=== PATIENT | female | born 2000 | race Caucasian/White ===

== ENCOUNTER 2023-03-05 16:43 | Outpatient (CLI) | payer OTHER, SELFPAY | END 2023-03-05 16:44 | disposition home or self-care (01) | LOC: NFLDREF 16:44 | PROVIDERS: Visit Provider Physician Assistant | DX: Z34.93 Encounter for supervision of normal pregnancy, unspecified, third trimester (principal); Z3A.28 28 weeks gestation of pregnancy | CPT/HCPCS: 86592 ==

== ENCOUNTER 2023-05-02 15:30 | Outpatient (CLI) | payer OTHER, SELFPAY | END 2023-05-02 15:31 | disposition home or self-care (01) | LOC: NFLDREF 05-03 20:21 | PROVIDERS: Visit Provider Obstetrics & Gynecology | DX: Z34.93 Encounter for supervision of normal pregnancy, unspecified, third trimester (principal) | CPT/HCPCS: 87081; 87653 ==

== ENCOUNTER 2023-05-17 08:56 | Outpatient (CLI) | payer OTHER, SELFPAY ==
--- NOTE | 2023-05-17 09:15 | CRLHL7_ITS ---
For Patients: As a result of the Century Cures Act, medical imaging exams and procedure reports are released immediately into your electronic medical record. You may view this report before your referring provider. If you have questions, please contact your health care provider. INDICATION: Third trimester scan, evaluate growth. COMPARISON: none TECHNIQUE: Real time june scale imaging of the fetus was performed. FINDINGS: Sonographic imaging demonstrates a single living intrauterine gestation. Fetus demonstrates a regular cardiac rate of 131 beats per minute. Fetus has a vertex position. The placenta lies anteriorly. Amniotic fluid volume appears normal and there is a single deepest vertical pocket: 5.7 cm. The estimated weight is 3600gm which lies at the 75th %. BPD 5th percentile. HC 12th percentile. AC greater than 97th percentile. FL 15th percentile. The HC/AC ratio measures 0.89 range (0.91-1.05). IMPRESSION: Sonographic gestational age 37 weeks 4 days and sonographic due date 06/03/2023. Sonographic age 6 days behind the clinical age. Estimated weight 75th percentile. Abdominal circumference greater than 97th percentile. Dictated by Major Castro MD @ 05/17/2023 10:14:42 AM (Electronically Signed)
== END 2023-05-17 08:57 | disposition home or self-care (01) ==
LOC: US 08:57
PROVIDERS: Visit Provider Obstetrics & Gynecology
DX: O36.5930 Maternal care for other known or suspected poor fetal growth, third trimester, not applicable or unspecified (principal); Z3A.37 37 weeks gestation of pregnancy
CPT/HCPCS: 76816

== ENCOUNTER 2023-05-24 17:07 | Inpatient (IN) | payer OTHER, SELFPAY ==
[2023-05-24] VITALS (48 sets, daily range): BP systolic 132–170; BP diastolic 74–103; PULSE 52–73; RESP 18; TEMP 36.7–37.1; O2SAT 98–100; BMI 33.1
[2023-05-24 16:20] LABS: Hematocrit 35.7 % (33.0-51.0); Hemoglobin* 11.6 gm/dL (12.0-16.0); Mean Corpuscular HGB Conc 33 gm/dL (32-36); Mean Corpuscular Hemoglobin 27 pg (26-34); Mean Corpuscular Volume 83 fL (80-100); Platelet Count* 208 K/uL (140-440); Red Blood Count 4.32 m/uL (4.00-5.20)
[2023-05-24 16:25] LABS: Slide Review Reflex No
[2023-05-24 16:26] LABS: Total Protein Urine 39 mg/dL
[2023-05-24 16:30] LABS: Creatinine Urine 35.2 mg/dL
[2023-05-24 16:32] LABS: Alanine Aminotransferase* 21 U/L (4-35); Aspartate Amino Transferase* 26 U/L (12-35); Blood Urea Nitrogen* 7 mg/dL (5-24); Creatinine* 0.7 mg/dL (0.5-1.5); Estimated Glomerular Filt Rate 125 ml/min
--- NOTE | 2023-05-24 16:40 | PM.OBHPAP1 ---
OB - H&P; HPI Antepartum History of Present Illness Time Seen by Provider: 16:40 Date Seen: 05/24/23 Chief complaint: Maternity Narrative: Celine Reese is a 22 year old female Specific Issues/Plans Spouse: Cody. Baby: Boy! Philip 1. Transfer OB at 28 2. Choroid plexus cysts and echogenic intracardiac focus noted on anatomy ultrasound. MFM consult and level 2 01/23/2023: No evidence of the echogenic intracardiac focus or choroid plexus cyst. Cell free DNA Nater/Panorama: Low risk 3. History of depression. Currently doing well. Last treated approximately 5 years ago 4. GBS positive: -Allergy to Amoxicillin with anaphylaxis -Susceptibilities completed, plan to utilize Vancomycin antibiotic for prophylaxis labs 11/19/22; O positive, negative antibody screen, hemoglobin 12.4, platelets 228, rubella immune, RPR nonreactive, hepatitis B surface antigen nonreactive, HIV negative, gonorrhea and Chlamydia negative. Urine culture negative Cell free DNA 01/08/2023: Low risk, boy! Imagin. 11/19/2022: Single live intrauterine with heart rate of 159. JOANNA 05/28/2023. Using ultrasound JOANNA due to 8 day discrepancy and uncertain LMP 2. 01/08/2023: Normal anatomy with exception of choroid plexus cyst and echogenic intracardiac focus. Anterior placenta, no previa. EFW 47.3% Covid: Flu: Tdap: 03/19/2023 Comments: This is a 22-year-old white female 1 para 0 who presents at 39 weeks gestation with a due date of May 28 based upon last menstrual. A 12 week ultrasound. Patient was seen in the office today and found to have elevated blood pressures. She is now sent for induction of labor patient denies any symptoms of preeclampsia. No spots before eyes or blurred vision. No headaches or abdominal pain. Patient states the baby is moving. Patient's antepartum history has been unremarkable. She is GBS positive. She passed all her other antepartum testing. Past medical history none. Past surgical history: Kidney surgery and tonsils. Medicines: None. Allergies: Penicillin codeine Ditropan and softball cause anaphylaxis. Social history: No smoke or drink or drugs. Tiny history: No history of STD. Review of systems is negative. Meds Home Medications and Allergies Home Medications Medication Instructions Recorded Confirmed Type biotin 5 mg capsule 5 mg PO QDAY 03/05/23 05/24/23 History calcium carbonate 600 mg-vitamin cap PO DAILY Supplement 03/05/23 05/24/23 History D3 12.5 mcg (500 unit) capsule (Calcium 600 with Vitamin D3) ferrous sulfate 134 mg (27 mg 134 mg PO QDAY 03/05/23 05/24/23 History iron) tablet folic acid 20 mg capsule 20 mg PO QDAY 03/05/23 05/24/23 History prenat.vits,sindy,zrf-pcqd-mauck 1 tab PO QDAY 03/05/23 05/24/23 History Allergies Allergy/AdvReac Type Severity Reaction Status Date / Time amoxicillin Allergy Severe Anaphylaxis Verified 05/24/23 15:34 oxybutynin [From Ditropan] Allergy Severe Anaphylaxis Verified 05/24/23 15:34 Penicillins Allergy Severe Anaphylaxis Verified 05/24/23 15:34 Sulfa (Sulfonamide Allergy Severe Anaphylaxis Verified 05/24/23 15:34 Antibiotics) sulfamethoxazole Allergy Severe Anaphylaxis Verified 05/24/23 15:34 [From Bactrim] trimethoprim [From Bactrim] Allergy Severe Anaphylaxis Verified 05/24/23 15:34 codeine Allergy Mild Verified 05/24/23 15:34 OB - H&P: Exam Physical Exam: Vital signs: Pulse BP Pulse Ox 56 L 139/95 H 100 05/24/23 16:25 05/24/23 16:25 05/24/23 16:37 Narrative: HEENT: Unremarkable. Lungs: Clear Heart: Positive S1-S2 no S3 or S4. Abdomen: Fundal height of 37. Soft and nontender. Sterile vaginal exam: Fingertip, 50%,-2 station heart tones: 120. Positive accelerations. No decelerations. Good variability. Irregular uterine contractions. Category 1. OB - Results Labs Labs: Short CBC 05/24/23 Range/Units 16:07 WBC 8.50 (4.50-11.00) K/uL Hgb 11.6 L (12.0-16.0) gm/dL Hct 35.7 (33.0-51.0) % Plt Count 208 (140-440) K/uL OB - A/P Antepartum Assessment and Plan (1) Preeclampsia: Status: Acute Plan Assessment: Preeclampsia without severe features. Patient will get induction of labor with Pitocin and a cervical balloon. Will hold off with magnesium at this point time. Patient have an epidural p.r.n.. GBS positive. Anaphylaxis to penicillins. Patient be treated with vancomycin.
[2023-05-24] MEDS: LACTATED RINGERS 1000 ML 1,000 ML 125 ML IV (17:50)
[2023-05-24] MEDS: OXYTOCIN 30 unit/500 ML in NS 30 UNIT/500 ML BAG IVPB (18:00)
[2023-05-25] VITALS (30 sets, daily range): BP systolic 115–159; BP diastolic 69–107; PULSE 51–83; RESP 18; TEMP 36.7–37.1; O2SAT 98–100
[2023-05-25] MEDS: LACTATED RINGERS 1000 ML 1,000 ML 125 ML IV (02:06)
[2023-05-25] MEDS: miSOPROStoL 25 MCG/0.25 TABLET VAGINAL ×4 (09:12→21:16)
--- NOTE | 2023-05-25 12:53 | PM.OBPNL ---
Subjective Time Seen by Provider: 12:53 Date Seen: 05/25/23 Narrative: Cook balloon out. Patient now getting Cytotec 25 mcg every 4 hours. Patient states that her discomfort is minimal. Positive movement. Objective Exam: HEENT: Unremarkable. Lungs: Clear Heart: Positive S1-S2 no S3 or S4. Abdomen: Soft nontender. Sterile vaginal exam by the nurse. 1 cm. 50%. Minus three. heart tones. heart rate of 140. Positive accelerations. No decelerations. Good variability. Category 1. Irregular uterine contractions. Vital Signs: Last Vital Signs Temp 98.8 F 05/25/23 11:44 Pulse 65 05/25/23 12:46 Resp 18 05/25/23 11:44 BP 115/71 05/25/23 12:46 Pulse Ox 98 05/25/23 08:00 Assessment Assessment: induction ongoing Status: Category l Plan Plan: Will continue Cytotec for 24 hours unless cervix becomes favorable and I am able to rupture membranes. No symptoms of severe preeclampsia. Blood pressures are relatively in the normal range. well-being is good at this point time.
[2023-05-25 23:02] LABS: Basophils Absolute Auto 0.04 K/uL (0.00-0.30); Basophils Percent Auto 0.4 % (0.0-3.0); Eosinophils Absolute Auto 0.29 K/uL (0.00-0.50); Eosinophils Percent Auto 2.8 % (0.0-7.0); Hematocrit 33.7 % (33.0-51.0); Lymphocytes Absolute Auto 2.28 K/uL (0.90-2.90); Lymphocytes Percent Auto 21.9 % (20-44); Mean Corpuscular HGB Conc 33 gm/dL (32-36); Mean Corpuscular Hemoglobin 27 pg (26-34); Mean Corpuscular Volume 82 fL (80-100); Monocytes Percent Auto 7.4 % (0.0-11.0); Neutrophils Absolute Auto 6.95 K/uL (1.7-7.0); Neutrophils Percent Auto 66.5 % (42.0-72.0); Platelet Count* 187 K/uL (140-440); RDW Coefficient of Variation % 13.1 % (11.5-15.5); White Blood Count* 10.43 K/uL (4.50-11.00)
[2023-05-25 23:03] LABS: Slide Review Reflex No
[2023-05-25 23:15] LABS: Albumin* 3.2 g/dL (3.3-5.0); Chloride* 102 mmol/L (96-114); Potassium* 3.9 mmol/L (3.6-5.1); Sodium* 133 mmol/L (135-149)
[2023-05-25 23:17] LABS: Creatinine* 0.9 mg/dL (0.5-1.5); Est. Creatinine Clearance* 83.95; Estimated Glomerular Filt Rate 92 ml/min
[2023-05-25 23:18] LABS: Alanine Aminotransferase* 18 U/L (4-35); Alkaline Phosphatase* 136 U/L (40-150); Aspartate Amino Transferase* 26 U/L (12-35); Bilirubin Total* 0.3 mg/dL (0.1-1.5); Blood Urea Nitrogen* 12 mg/dL (5-24); Carbon Dioxide* 26 mmol/L (20-32); Total Protein* 6.3 g/dL (6.0-8.3)
[2023-05-25 23:19] LABS: Glucose* 90 mg/dL (60-115)
[2023-05-26] VITALS (108 sets, daily range): BP systolic 106–194; BP diastolic 61–97; PULSE 49–105; RESP 16–18; TEMP 36.8–39.4; O2SAT 92–100
[2023-05-26] MEDS: miSOPROStoL 25 MCG/0.25 TABLET VAGINAL (01:13)
[2023-05-26] MEDS: LACTATED RINGERS 1000 ML 1,000 ML 1200 ML IV ×2 (02:12→02:57)
[2023-05-26] MEDS: ROPIVACAINE 0.2% 100 ml 100 ML 12 MG EPIDURAL (02:47)
[2023-05-26] MEDS: LIDOCAINE 2% (PF) 5 ML VIAL EPIDURAL (02:47)
--- NOTE | 2023-05-26 02:56 | P.ANBPRC_ITS ---
[facility] Medical History (Updated 05/24/23 @ 16:43 by Yovanny De Leon MD) Depression ?F32.A - Depression, unspecified (ICD-10) History of urinary reflux ?Z87.448 - Personal history of other diseases of urinary system (ICD-10) Surgical History (Updated 05/10/23 @ 14:24 by Cherise Manjarrez MD) H/O wisdom tooth extraction ?K08.409 - Partial loss of teeth, unspecified cause, unspecified class (ICD- 10) History of tonsillectomy and adenoidectomy ?Z90.89 - Acquired absence of other organs (ICD-10) Family History (Updated 03/05/23 @ 12:43 by Ariella Navarrete PA-C) Father Diabetes Maternal Grandmother Diabetes Colon cancer Breast cancer Cervical cancer Social History (Updated 05/10/23 @ 14:25 by Cherise Manjarrez MD) Narrative: Lives in [place] with FOB and dog. 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 Significant other. What is your current living situation?: I presently have a place to live Problems where you live: no known problems In the past 12 months, utilities in danger of being shut off: no In the past 12 mos, have been you worried that your food would run out before you had money to buy more?: never true In the past 12 mos, the food you bought just didn't last and you didn't have money to buy more?: never true Smoking Status: Never smoker How often does anyone, including family, friends and others, physically hurt you : never How often does anyone, including family, friends and others, insult or talk down to you: never How often does anyone, including family, friends and others, threaten you with harm: never How often does anyone, including family, friends and others, scream or curse at you: never Little interest or pleasure in doing things: not at all Feeling down, depressed, or hopeless: not at all Meds Home Medications and Allergies Home Medications Medication Instructions Recorded Confirmed Type biotin 5 mg capsule 5 mg PO QDAY 03/05/23 05/24/23 History calcium carbonate 600 mg-vitamin 1 cap PO DAILY Supplement 03/05/23 05/24/23 History D3 12.5 mcg (500 unit) capsule (Calcium 600 with Vitamin D3) ferrous sulfate 134 mg (27 mg 134 mg PO QDAY 03/05/23 05/24/23 History iron) tablet folic acid 20 mg capsule 20 mg PO QDAY 03/05/23 05/24/23 History prenat.vits,sindy,nai-khds-ahulx 1 tab PO QDAY 03/05/23 05/24/23 History Allergies Allergy/AdvReac Type Severity Reaction Status Date / Time amoxicillin Allergy Severe Anaphylaxis Verified 05/24/23 15:34 oxybutynin [From Ditropan] Allergy Severe Anaphylaxis Verified 05/24/23 15:34 Penicillins Allergy Severe Anaphylaxis Verified 05/24/23 15:34 Sulfa (Sulfonamide Allergy Severe Anaphylaxis Verified 05/24/23 15:34 Antibiotics) sulfamethoxazole Allergy Severe Anaphylaxis Verified 05/24/23 15:34 [From Bactrim] trimethoprim [From Bactrim] Allergy Severe Anaphylaxis Verified 05/24/23 15:34 codeine Allergy Mild Verified 05/24/23 15:34 Results Labs Labs: Laboratory Results - last 24 hr 05/25/23 22:55 WBC 10.43 RBC 4.10 Hgb 11.0 L Hct 33.7 MCV 82 MCH 27 MCHC 33 RDW Coeff of Berto 13.1 Plt Count 187 Neut % (Auto) 66.5 Lymph % (Auto) 21.9 [place] % (Auto) 7.4 Eos % (Auto) 2.8 Baso % (Auto) 0.4 Neut # (Auto) 6.95 Lymph # (Auto) 2.28 [place] # (Auto) 0.80 Eos # (Auto) 0.29 Baso # (Auto) 0.04 Abs Immat Gran (auto) 0.10 Imm/Tot Granulo (auto) 1.0 Sodium 133 L Potassium 3.9 Chloride 102 Carbon Dioxide 26 BUN 12 Creatinine 0.9 Estimated Creat Clear 83.95 Estimated GFR 92 Glucose 90 Total Bilirubin 0.3 AST 26 ALT 18 Alkaline Phosphatase 136 Total Protein 6.3 Albumin 3.2 L Vital Signs Vital Signs: Last Vital Signs Temp 98.6 F 05/26/23 02:53 Pulse 56 L 05/26/23 02:53 Resp 18 05/25/23 15:53 BP 130/78 05/26/23 02:53 Pulse Ox 99 05/26/23 02:41 Weight: 87.861 kg Height: 162.56 cm Anesthesia Procedures Epidural Insertion Patient Location: OB Start Time: 02:00 Stop Time: 03:00 Start Date: 05/26/23 Stop Date: 05/26/23 Reason for Block: procedure for pain Patient Position: sitting Performed By: Laura Manzanares Preanesthetic Checklist: IV checked, risks and benefits discussed, monitors and equipment checked, pre-op evaluation, timeout performed and anesthesia consent Prep: chlorhexidine gluconate Monitoring: blood pressure monitoring, continuous pulse oximetry and heart rate Approach: midline Vertebral Space: lumbar (1-5) Epidural Technique: YUN saline Needle Type: Tuohy needle Injection Technique: continuous catheter (continuous catheter) Needle gauge: 17 Needle Length (cm): 10 cm Needle Insertion Depth (cm): 6 Catheter Gauge: 19 Catheter Type: multi-orifice Catheter at skin depth (cm): 15 Test Dose Result: negative and lidocaine 1.5% with epinephrine 1 to 200,000
[2023-05-26] MEDS: diphenhydrAMINE 50 MG/ML inj 25 MG IVP (04:47)
[2023-05-26] MEDS: OXYTOCIN 30 unit/500 ML in NS 30 UNIT/500 ML BAG IVPB (05:20)
--- NOTE | 2023-05-26 08:56 | W.PM.OBVAGDE ---
OB Procedure Vag Delivery Mother Details Mother Details: The patient is a 22 year-old, 1, Para 0, admitted on 05/24/23 at 39 weeks gestation with a diagnosis of preeclampsia. She was seen in the office on the day of admission and found to have an elevated blood pressure. PC ratio was also elevated. Patient had no other signs or symptoms of preeclampsia with severe features. : 1 Weeks Gestation: 39 Additional Details Amniotic Membrane Status: SROM Amniotic Membrane Fluid Description: Clear Analgesia/Anesthesia Type: Epidural Waterbirth: No Pitcoin: Yes Intrapartal Events: Labor Induction Induction Method: Intracervical balloon catheter, per misoprostol protocol and per pitocin protocol Heart: heart tones during second stage were [] Delivery Details Route of delivery: Gender: Male Viability: Alive; Heart Rate Present Position at Delivery: OA Delivery Details: Patient had spontaneous rupture of membranes at approximately 2:00 a.m.. I was called at 6:30 a.m. telling me she was complete and +1 station. I arrived approximately 645 and have the patient start pushing. heart tones at this point time were reassuring. Blood pressure normal. Patient pushed for approximately 90 minutes. As the patient crowned a turtle sign was immediately recognized and shoulder dystocia protocol was called. The McRobert maneuver was performed and this failed to deliver the fetus. No traction at any time was put on the head. Suprapubic pressure was then ordered and this also failed. I then delivered the posterior arm by putting my finger in the right axilla, which was posterior and able to deliver the arm. They rest of the body weekly follow-up. Time from delivery of head to body was 70 seconds. The cord was then doubly clamped and cut and the infant was handed to the nurse practitioner. Pitocin was ordered Cord gases were obtained. The vaginal vault cervix in [place] also checked. There was a spontaneous small second-degree laceration of the vagina at the posterior fourchette. This was repaired with a [id number] stitch of 2-0 Vicryl. Apgars were 5 and 8. Examination of the baby suggested crepitance over the posterior arm which was the right arm. This suggested a clavicle fracture. Patient and father were made aware. X-ray has been ordered. 1 Minute Interval Total Score: 5 5 Minute Interval Total Score: 8 Additional Details Shoulder Dystocia: Yes Placental Delivery Description: Spontaneous Delivery repair: Vicryl Procedure Done: Global Blood Loss: 500 Laceration: Vaginal - 2nd Degree Episiotomy Description: None Blood Loss Measurement Type: EBL Bakri Used: No Sponge/Need Count Correct: Yes Cord Vessel Description: 3 Vessels Event Summary Status: Mother and infant were stable after delivery.
[2023-05-26] MEDS: IBUPROFEN 600 MG TABLET PO (09:23)
[2023-05-26] MEDS: LACTATED RINGERS 1000 ML 1,000 ML 75 ML IV (10:00)
[2023-05-26] MEDS: LABETALOL HCL 5 MG/ML inj IVP ×2 (10:00→10:12)
[2023-05-26] MEDS: MAGNESIUM IV 4 GM/100 ML PIGGYBACK IVPB (10:06)
--- NOTE | 2023-05-26 10:34 | P.OBPN_ITS ---
OB - PN:Subj Subjective Time Seen by Provider: 10:34 Date Seen: 05/26/23 Interval history: Called to see the patient at approximately 10:00 a.m. with complaints of visual changes and spots before eyes. Blood pressure at that time was taken was found to be 194/83. 4 gram of magnesium bolus was then given followed by 2 grams/hour. Patient also received 20 mg of labetalol IV at that time. After 15 minutes blood pressure came down to 177/86 and 40 mg of labetalol was given. After 15 minutes blood pressure is now 136/72 OB - PN: Obj Exam Physical Exam: Vital signs: Temp Pulse Resp BP Pulse Ox 98.9 F 97 18 138/76 98 05/26/23 06:42 05/26/23 10:31 05/25/23 15:53 05/26/23 10:31 05/26/23 10:30 Narrative: Lungs are clear Heart: Positive S1-S2 no S3 or S4. Abdomen: Soft and nontender. Lower extremities: 3+ deep tendon reflexes. Negative clonus. OB - PN: Obj Data Labs Labs: Laboratory Results - last 24 hr 05/25/23 22:55 WBC 10.43 RBC 4.10 Hgb 11.0 L Hct 33.7 MCV 82 MCH 27 MCHC 33 RDW Coeff of Berto 13.1 Plt Count 187 Neut % (Auto) 66.5 Lymph % (Auto) 21.9 [place] % (Auto) 7.4 Eos % (Auto) 2.8 Baso % (Auto) 0.4 Neut # (Auto) 6.95 Lymph # (Auto) 2.28 [place] # (Auto) 0.80 Eos # (Auto) 0.29 Baso # (Auto) 0.04 Abs Immat Gran (auto) 0.10 Imm/Tot Granulo (auto) 1.0 Sodium 133 L Potassium 3.9 Chloride 102 Carbon Dioxide 26 BUN 12 Creatinine 0.9 Estimated Creat Clear 83.95 Estimated GFR 92 Glucose 90 Total Bilirubin 0.3 AST 26 ALT 18 Alkaline Phosphatase 136 Total Protein 6.3 Albumin 3.2 L OB - PN: A/P Delivery Assessment and Plan (1) Preeclampsia: Status: Acute Plan Assessment: Symptoms of severe preeclampsia. Cbc and CMP ordered. Patient will receive 4 g bolus of magnesium followed by 2 grams/hour. Will continue to monitor blood pressures per protocol. Strict I's and O's. Fluid restrict to 125 mL. Mos[place] ordered.
[2023-05-26 10:44] LABS: Hemoglobin* 11.4 gm/dL (12.0-16.0); Mean Corpuscular HGB Conc 35 gm/dL (32-36); Mean Corpuscular Hemoglobin 28 pg (26-34); Mean Corpuscular Volume 82 fL (80-100); Platelet Count* 192 K/uL (140-440); Red Blood Count 4.05 m/uL (4.00-5.20); White Blood Count* 14.24 K/uL (4.50-11.00)
[2023-05-26 10:46] LABS: Slide Review Reflex No
[2023-05-26 11:02] LABS: Alanine Aminotransferase* 20 U/L (4-35); Aspartate Amino Transferase* 34 U/L (12-35); Blood Urea Nitrogen* 14 mg/dL (5-24); Est. Creatinine Clearance* 75.55; Estimated Glomerular Filt Rate 81 ml/min
--- NOTE | 2023-05-26 14:33 | P.OBPN_ITS ---
OB - PN:Subj Subjective Time Seen by Provider: 14:33 Date Seen: 05/26/23 Interval history: Called to see the patient at approximately 10:00 a.m. with complaints of visual changes and spots before eyes. Blood pressure at that time was taken was found to be 194/83. 4 gram of magnesium bolus was then given followed by 2 grams/hour. Patient also received 20 mg of labetalol IV at that time. After 15 minutes blood pressure came down to 177/86 and 40 mg of labetalol was given. After 15 minutes blood pressure is now 136/72 OB - PN: Obj Exam Physical Exam: Vital signs: Temp Pulse Resp BP Pulse Ox 98.9 F 78 18 149/80 H 96 05/26/23 06:42 05/26/23 12:01 05/25/23 15:53 05/26/23 12:01 05/26/23 12:35 OB - PN: Obj Data Labs Labs: Laboratory Results - last 24 hr 05/25/23 05/26/23 22:55 10:35 WBC 10.43 14.24 H RBC 4.10 4.05 Hgb 11.0 L 11.4 L Hct 33.7 33.0 MCV 82 82 MCH 27 28 MCHC 33 35 RDW Coeff of Berto 13.1 Plt Count 187 192 Neut % (Auto) 66.5 Lymph % (Auto) 21.9 [place] % (Auto) 7.4 Eos % (Auto) 2.8 Baso % (Auto) 0.4 Neut # (Auto) 6.95 Lymph # (Auto) 2.28 [place] # (Auto) 0.80 Eos # (Auto) 0.29 Baso # (Auto) 0.04 Abs Immat Gran (auto) 0.10 Imm/Tot Granulo (auto) 1.0 Sodium 133 L Potassium 3.9 Chloride 102 Carbon Dioxide 26 BUN 12 14 Creatinine 0.9 1.0 Estimated Creat Clear 83.95 75.55 Estimated GFR 92 81 Glucose 90 Total Bilirubin 0.3 AST 26 34 ALT 18 20 Alkaline Phosphatase 136 Total Protein 6.3 Albumin 3.2 L OB - PN: A/P Delivery Assessment and Plan (1) Preeclampsia: Status: Acute
[2023-05-26 16:45] LABS: Hematocrit 33.4 % (33.0-51.0); Hemoglobin* 11.2 gm/dL (12.0-16.0); Mean Corpuscular HGB Conc 34 gm/dL (32-36); Mean Corpuscular Hemoglobin 27 pg (26-34); Mean Corpuscular Volume 82 fL (80-100); Platelet Count* 194 K/uL (140-440); Red Blood Count 4.09 m/uL (4.00-5.20); White Blood Count* 15.52 K/uL (4.50-11.00)
[2023-05-26 17:00] LABS: Est. Creatinine Clearance* 75.55; Estimated Glomerular Filt Rate 81 ml/min
[2023-05-26 17:01] LABS: Alanine Aminotransferase* 21 U/L (4-35); Aspartate Amino Transferase* 47 U/L (12-35); Blood Urea Nitrogen* 13 mg/dL (5-24)
[2023-05-26 17:08] LABS: Magnesium* 5.7 mg/dL (1.5-2.6)
[2023-05-26 17:29] LABS: Slide Review Reflex No
[2023-05-26] MEDS: miSOPROStoL 800 MCG/4 TABLET 400 MCG SUBLINGUAL (20:17)
[2023-05-26] MEDS: LABETALOL HCL 100 MG TABLET PO (21:04)
[2023-05-26] MEDS: ACETAMINOPHEN 500 MG TABLET 1000 MG PO (21:04)
[2023-05-26 22:33] LABS: Hematocrit 30.2 % (33.0-51.0); Mean Corpuscular HGB Conc 33 gm/dL (32-36); Mean Corpuscular Hemoglobin 27 pg (26-34); Mean Corpuscular Volume 82 fL (80-100); Platelet Count* 177 K/uL (140-440); Red Blood Count 3.67 m/uL (4.00-5.20); White Blood Count* 12.85 K/uL (4.50-11.00)
[2023-05-26 22:34] LABS: Slide Review Reflex No
[2023-05-26 22:36] LABS: Alanine Aminotransferase* 19 U/L (4-35); Aspartate Amino Transferase* 40 U/L (12-35); Est. Creatinine Clearance* 75.55; Estimated Glomerular Filt Rate 81 ml/min
[2023-05-26 22:37] LABS: Blood Urea Nitrogen* 14 mg/dL (5-24)
[2023-05-26 22:48] LABS: Magnesium* 6.5 mg/dL (1.5-2.6)
[2023-05-27] VITALS (11 sets, daily range): BP systolic 120–157; BP diastolic 74–93; PULSE 57–71; RESP 16; TEMP 36.3–36.8; O2SAT 95–97
[2023-05-27] MEDS: LACTATED RINGERS 1000 ML 1,000 ML 75 ML IV (00:01)
[2023-05-27] MEDS: IBUPROFEN 600 MG TABLET PO ×3 (04:15→23:47)
[2023-05-27 05:04] LABS: Hematocrit 31.3 % (33.0-51.0); Hemoglobin* 10.3 gm/dL (12.0-16.0); Mean Corpuscular HGB Conc 33 gm/dL (32-36); Mean Corpuscular Hemoglobin 27 pg (26-34); Mean Corpuscular Volume 82 fL (80-100); Platelet Count* 178 K/uL (140-440); White Blood Count* 12.19 K/uL (4.50-11.00)
[2023-05-27 05:10] LABS: Slide Review Reflex No
[2023-05-27 05:12] LABS: Alanine Aminotransferase* 20 U/L (4-35); Aspartate Amino Transferase* 39 U/L (12-35); Blood Urea Nitrogen* 12 mg/dL (5-24); Est. Creatinine Clearance* 75.55; Estimated Glomerular Filt Rate 81 ml/min
[2023-05-27 05:21] LABS: Magnesium* 7.4 mg/dL (1.5-2.6)
[2023-05-27] MEDS: DOCUSATE SODIUM 100 MG CAPSULE PO (10:20)
[2023-05-27] MEDS: LABETALOL HCL 100 MG TABLET PO ×2 (10:21→21:32)
[2023-05-27 10:33] LABS: Hematocrit 32.1 % (33.0-51.0); Hemoglobin* 10.5 gm/dL (12.0-16.0); Mean Corpuscular HGB Conc 33 gm/dL (32-36); Mean Corpuscular Hemoglobin 27 pg (26-34); Mean Corpuscular Volume 82 fL (80-100); Platelet Count* 182 K/uL (140-440); Red Blood Count 3.91 m/uL (4.00-5.20); White Blood Count* 12.59 K/uL (4.50-11.00)
[2023-05-27 10:34] LABS: Slide Review Reflex No
[2023-05-27 10:55] LABS: Alanine Aminotransferase* 21 U/L (4-35); Aspartate Amino Transferase* 45 U/L (12-35); Blood Urea Nitrogen* 12 mg/dL (5-24); Creatinine* 0.9 mg/dL (0.5-1.5); Est. Creatinine Clearance* 83.95; Estimated Glomerular Filt Rate 92 ml/min
[2023-05-27 11:11] LABS: Magnesium* 7.5 mg/dL (1.5-2.6)
--- NOTE | 2023-05-27 14:13 | P.OBPN_ITS ---
OB - PN:Subj Subjective Time Seen by Provider: 08:45 Date Seen: 05/27/23 Interval history: The patient was teary eyed when I came into the room, as she had just been informed by the integration project manager that her would need to be transferred to a tertiary medical center. She had no other concerns. She denied headaches, visual changes, abdominal pain or cramping, or heavy vaginal bleeding. She is working on . [place] infant status: and transferred (Plan to be transferred today) OB - PN: Obj Exam Physical Exam: Vital signs: Temp Pulse Resp BP Pulse Ox O2 Del Method 97.6 F 71 16 130/82 95 Room Air 05/27/23 11:00 05/27/23 11:00 05/27/23 11:00 05/27/23 11:00 05/27/23 11:00 05/27/23 11:00 Constitutional: Constitutional: no acute distress (Tearful) Routine Respiratory Exam: Respiratory: Present CTA bilaterally Routine Cardiovascular Exam: Cardiovascular: Present RRR Detailed Abdominal Exam: Comments: Soft, nontender. Fundus firm at the umbilicus. Routine Extremities Exam: Extremities: Absent calf tenderness Urinary Catheter Management: Urethral: Cath placed during this visit: no OB - PN: Obj Data Labs Labs: Laboratory Results - last 24 hr 05/26/23 05/26/23 05/27/23 16:38 22:15 04:50 WBC 15.52 H 12.85 H 12.19 H RBC 4.09 3.67 L 3.80 L Hgb 11.2 L 10.0 L 10.3 L Hct 33.4 30.2 L 31.3 L MCV 82 82 82 MCH 27 27 27 MCHC 34 33 33 Plt Count 194 177 178 BUN 13 14 12 Creatinine 1.0 1.0 1.0 Estimated Creat Clear 75.55 75.55 75.55 Estimated GFR 81 81 81 Magnesium 5.7 H* 6.5 H* 7.4 H* AST 47 H 40 H 39 H ALT 21 19 20 05/27/23 10:25 WBC 12.59 H RBC 3.91 L Hgb 10.5 L Hct 32.1 L MCV 82 MCH 27 MCHC 33 Plt Count 182 BUN 12 Creatinine 0.9 Estimated Creat Clear 83.95 Estimated GFR 92 Magnesium 7.5 H* AST 45 H ALT 21 OB - PN: A/P Delivery Assessment and Plan (1) Preeclampsia: Status: Acute Assessment and Plan: Magnesium sulfate infusion to be discontinued after 24 hours. Continue labetalol 100 mg p.o. b.i.d.. Continue close observation of blood pressures. (2) Chorioamnionitis: Status: Acute Assessment and Plan: Discontinue IV antibiotics when she has been afebrile for 48 hours. Plan day: 1 Plan: routine care Comments: Reassess for discharge tomorrow. Breast pumping to be initiated once the infant is transferred.
[2023-05-27] MEDS: ACETAMINOPHEN 500 MG TABLET 1000 MG PO (16:10)
[2023-05-27] MEDS: NIFEdipine 30 MG TAB.ER.24 PO (16:49)
[2023-05-28 03:45] VITALS: BP 118/74; PULSE 66; RESP 16; TEMP 36.7
[2023-05-28 08:41] VITALS: BP 142/77; PULSE 61; RESP 16; TEMP 36.6; O2SAT 97
--- NOTE | 2023-05-28 08:47 | PM.OBDSVD1 ---
DS: Providers Provider Time Seen by Provider: 08:30 Date Seen: 05/28/23 Date of admission: 05/24/23 17:07 Primary care physician: Not a Local Provider Admitting Clinician: Yovanny De Leon MD Attending Physician on discharge: Jennifer Hernandez MD Date of Discharge: 05/28/23 DS: Diagnosis Discharge Diagnosis (1) Status post normal vaginal delivery: Status: Acute (2) Preeclampsia: Status: Acute (3) Chorioamnionitis: Status: Acute Exam Const: Vital Signs, click to edit/add: Vital Signs - 24 hr 05/27/23 11:00 05/27/23 15:50 05/27/23 16:10 Temperature 97.6 F 98.2 F Pulse Rate [Pulse Oximeter] 71 70 Respiratory Rate 16 16 Blood Pressure [Le ft Arm] 130/82 157/93 H 133/88 Pulse Oximetry 95 96 Oxygen Delivery Me thod Room Air Room Air 05/27/23 16:25 05/27/23 19:45 05/27/23 21:27 Temperature 97.6 F Pulse Rate [Pulse Oximeter] 67 63 Respiratory Rate 16 16 Blood Pressure [Le ft Arm] 144/93 H 142/83 H 135/83 Pulse Oximetry Oxygen Delivery Me thod Room Air Room Air 05/27/23 23:49 05/28/23 03:45 05/28/23 08:41 Temperature 97.4 F L 98.1 F 97.9 F Pulse Rate [Pulse Oximeter] 57 L 66 61 Respiratory Rate 16 16 16 Blood Pressure [Le ft Arm] 120/74 118/74 142/77 H Pulse Oximetry 97 Oxygen Delivery Me thod Room Air Documenting provider has reviewed patient's vital signs: yes Common normals: no apparent distress, oriented x3 and alert General appearance: cooperative and comfortable Resp: Common normals: normal respiratory effort Cardio: Common normals: regular rate and regular rhythm Rate: regular rate Rhythm: regular rhythm GI: Common normals: soft to palpation and non-tender Palpation: soft : Uterus: U/2 and firm Uterus palpation: uterus nontender Extremity: Common normals: normal to inspection Neuro: Common normals: oriented x3 Sensorium/orientation: alert OB - DS: Summary Hospital Course Hospital Course: The patient is a 22 year old G 1 P 1001 that was admitted to the Center on 05/24/23 for induction of labor secondary to elevated BP/pre-eclampsia without severe features. She had an uncomplicated vaginal delivery. She delivered a viable male infant. Later on the day of delivery, she developed severe range BP and a fever to 102.5 F. Diagnosis was made of pre-eclampsia with severe features and chorioamnionitis. She was treated with magnesium sulfate prophylaxis and broad spectrum antibiotics for 24 hours. was transferred to a tertiary care hospital on PPD #1 for suspected bowel issue. She is breast pumping. Over the last 24 hours the patient has done well. BP is controlled on Procardia XL and Labetalol. She remains afebrile. Peripartum Data delivery method: Vaginal Laceration description: Vaginal - 2nd Degree complications: none Gender: Male Discharge Plan: transfered Time Spent with Patient Time attestation: Total time spent providing and/or coordinating discharge services: Time spent: Less than 30 minutes Discharge Plan Discharge Disposition: Home, Self-Care Date of Admission: 05/24/23 17:07 Attending Provider on Discharge: Jennifer Hernandez Primary Care Provider: Provider,Not a Local Condition: Stable Anticipated Discharge Date/Time: 05/28/23 08:57 Discharge Medications: New nifedipine 30 mg Tablet Extended Release 24hr 30 mg PO DAILY Qty: 30 1RF docusate sodium 100 mg Capsule 100 mg PO DAILY Qty: 30 0RF ibuprofen 600 mg Tablet 600 mg PO Q6H PRNQty: 30 0RF labetalol 100 mg Tablet 100 mg PO BID Qty: 60 1RF Continued prenat.vits,sindy,atg-ddwj-rznwz Tablet 1 tab PO QDAY ferrous sulfate 134 mg (27 mg iron) tablet 134 mg PO QDAY folic acid 20 mg capsule 20 mg PO QDAY biotin 5 mg capsule 5 mg PO QDAY calcium carbonate-vitamin D3 [Calcium 600 with Vitamin D3] 600 mg-12.5 mcg (500 unit) capsule 1 cap PO DAILY Discharge Orders: Discharge Order (Routine); Ordered 05/28/23 Ordered By: Jennifer Hernandez Follow Up Appointments: Provider,Not a Local [Primary Care Provider] - Forms: [employer] Info Instructions
[2023-05-28] MEDS: NIFEdipine 30 MG TAB.ER.24 PO (08:52)
[2023-05-28] MEDS: LABETALOL HCL 100 MG TABLET PO (08:53)
[2023-05-28] MEDS: IBUPROFEN 600 MG TABLET PO (08:53)
[2023-05-28] MEDS: DOCUSATE SODIUM 100 MG CAPSULE PO (08:53)
[2023-05-28 10:30] VITALS: BP 132/76; PULSE 64; RESP 16
[2023-05-30 18:10] LABS: Calcium* 9.2 mg/dL (8.4-10.6)
== END 2023-05-28 10:40 | disposition home or self-care (01) | DRG 805 ==
LOC: OB OUT 17:07 → OB 17:07
PROVIDERS: Admitting Provider Specialist; Visit Provider Specialist
DX: O14.04 Mild to moderate pre-eclampsia, complicating childbirth (principal); O41.1230 Chorioamnionitis, third trimester, not applicable or unspecified; O14.14 Severe pre-eclampsia complicating childbirth; O66.0 Obstructed labor due to shoulder dystocia; O70.1 Second degree perineal laceration during delivery; O99.824 Streptococcus B carrier state complicating childbirth; Z3A.39 39 weeks gestation of pregnancy; Z37.0 Single live birth
CPT/HCPCS: 01967; 36415; 59200; 80053; 82565; 82570; 83735; 84156; 84450; 84460; 84520; 85018; 85025; 85027; 88307; A9270; C1726; J1200; J1580; J2371; J2795; J3370; J3475; J7120

== ENCOUNTER 2024-06-30 07:15 | Outpatient (CLI) | payer OTHER, SELFPAY ==
--- NOTE | 2024-06-30 07:15 | CRLHL7_ITS ---
For Patients: As a result of the Century Cures Act, medical imaging exams and procedure reports are released immediately into your electronic medical record. You may view this report before your referring provider. If you have questions, please contact your health care provider. CLINICAL HISTORY: Right lower quadrant pain TECHNIQUE: 2D june scale and color Doppler images were acquired of the pelvis using a transvaginal approach. FINDINGS: On transvaginal imaging, the myometrium has a normal uniform echotexture. The uterus measures 7.2 x 3.9 x 5.4 cm. The endometrial lining appears normal and measures 4.6 mm in thickness. The left ovary measures 3.7 x 1.4 x 2.2 cm in size and the right ovary measures 3.7 x 2.2 x 2.7 cm. The ovaries demonstrate normal arterial and venous blood flow on color Doppler analysis. There are no suspicious fluid collections within the cul-de-sac. IMPRESSION: No abnormalities of the uterus or ovaries identified. No right ovarian cyst. Dictated by Major Castro MD @ 06/30/2024 1:39:27 PM (Electronically Signed)
--- NOTE | 2024-06-30 07:15 | CRLHL7_ITS ---
For Patients: As a result of the Century Cures Act, medical imaging exams and procedure reports are released immediately into your electronic medical record. You may view this report before your referring provider. If you have questions, please contact your health care provider. INDICATION: Right lower quadrant pain TECHNIQUE: A graded compression right lower quadrant ultrasound was obtained with axial and longitudinal images with high frequency transducer in the area of the symptoms. FINDINGS: Appendix is not identified. Normal mesenteric lymph node is present measuring 9 x 4 x 6 millimeters. No free fluid. IMPRESSION: Appendix is not sonographically visible. If there is high clinical index of suspicion for appendicitis, consider CT scan of the abdomen and pelvis. Dictated by Major Castro MD @ 06/30/2024 1:37:54 PM (Electronically Signed)
== END 2024-06-30 07:16 | disposition home or self-care (01) ==
LOC: US 07:18
PROVIDERS: Visit Provider Nurse Practitioner Family
DX: R10.31 Right lower quadrant pain (principal)
CPT/HCPCS: 76705; 76830; 76856

== ENCOUNTER 2024-07-10 07:40 | Outpatient (CLI) | payer OTHER, SELFPAY ==
--- NOTE | 2024-07-10 08:00 | CRLHL7_ITS ---
For Patients: As a result of the Century Cures Act, medical imaging exams and procedure reports are released immediately into your electronic medical record. You may view this report before your referring provider. If you have questions, please contact your health care provider. Indication: Right lower quadrant pain and pelvic pain for a month Technique: CT through the abdomen and pelvis following 75 mL Isovue 370 IV contrast Comparison: None Findings: Lower chest: No significant abnormality appreciated. Hepatobiliary: No significant parenchymal abnormality is appreciated. Spleen: Unremarkable. Pancreas: Unremarkable. Adrenal glands: Unremarkable. Kidneys: No significant parenchymal abnormality appreciated. No visualized calculi. No hydronephrosis. Bowel: No obstruction. No focal perienteric or pericolonic stranding is appreciated. The appendix is noted. There is very slight wall thickening of the appendix and opacification to the tip, though appearing nondistended and without adjacent stranding, suggestive against appendicitis. Vascular: Unremarkable. Lymph nodes: No gross lymphadenopathy. Peritoneum: No free air. No free fluid. : Wall thickening bladder. Left simple ovarian cyst measures 2.9 centimeters, likely a functional cyst. Soft tissues: No acute abnormality appreciated. Tiny fat containing umbilical hernia. Bones: Minimal lumbar degenerative changes. Impression: Wall thickening of the bladder. Recommend correlation for UTI/cystitis. No other abnormal findings appreciated to account for patient`s reported symptoms. Please note that all CT scans at this facility use dose modulation, iterative reconstruction, and/or weight-based dosing when appropriate to reduce radiation dose to as low as reasonably achievable. Dictated by Skip Foster MD @ 07/12/2024 8:55:38 PM (Electronically Signed)
== END 2024-07-10 07:41 | disposition home or self-care (01) ==
LOC: CT 07:40
PROVIDERS: Visit Provider Nurse Practitioner Family
DX: R10.31 Right lower quadrant pain (principal); R10.2 Pelvic and perineal pain
CPT/HCPCS: 74177; Q9967